=== PATIENT | female | born 2000 | race Caucasian/White ===

== ENCOUNTER 2019-12-16 00:13 | Emergency (ER) | payer OTHER ==
--- NOTE | 2019-12-16 00:33 | ER Document Report ---
ED Medical Screen (RME) - General Chief Complaint: Possible Overdose Stated Complaint: INTENTIONAL OVERDOSE Time Seen by Provider: 12/16/19 00:24 Mode of Arrival: Wheelchair Information source: Patient Notes: HPI;18-year-old female presents to the emergency room with her roommate stating that she attempted to commit suicide by taking 9 pills of 50 mg strength Zoloft, 3 Phenergan pills 25 mg each, and 15 Topamax 25 mg of pills were taken around 11:40 PM. Patient states she is been depressed and in a very low place for the past 3 days and felt that "if I just it would be easier" previous history of suicidal ideation but has never made an attempt in the past. PE: Alert and oriented x3. Flat affect. Answers questions appropriately. Groggy. Spoke with poison control recommends IV fluids, salt refiner, monitor for anticholinergic effects as well as prolonged QT. 6-hour observation. I have greeted and performed a rapid initial assessment of this patient. A comprehensive ED assessment and evaluation of the patient, analysis of test results and completion of the medical decision making process will be conducted by additional ED providers. I have specifically instructed the patient or family members with the patient to immediately return to any nursing staff should anything change in the patient's condition or with their chief complaint. TRAVEL OUTSIDE OF THE [place] IN LAST 30 DAYS: No Physical Exam - Vital signs Vitals: Temp Pulse BP Pulse Ox 98.4 F 126 H 100/83 99 12/16/19 00:22 12/16/19 00:12/16/19 00:12/16/19 00:22 Course - Vital Signs Vital signs: Temp Pulse Resp BP Pulse Ox 98.4 F 126 H 100/83 99 12/16/19 00:22 12/16/19 00:22 12/16/19 00:22 12/16/19 00:22
[2019-12-16] MEDS ORDERED: RINGERS SOLUTION,LACTATED 1,000 ML IV ONE (00:38)
[2019-12-16] MEDS ORDERED: DIAZEPAM INJ 10 MG/2 ML DISP.SYRIN IV ONE (01:03)
[2019-12-16] MEDS ORDERED: DIAZEPAM INJ 10 MG/2 ML DISP.SYRIN IM ONE (01:04)
[2019-12-16 01:55] LABS: ABSOLUTE BASOPHILS # (AUTO) 0.1 10^3/uL (0.0-0.2); ABSOLUTE EOSINOPHILS # (AUTO) 0.1 10^3/uL (0.0-0.6); ABSOLUTE LYMPHOCYTES (AUTO) 5.9 10^3/uL (0.5-4.7); ABSOLUTE MONOCYTES (AUTO) 0.6 10^3/uL (0.1-1.4); ABSOLUTE NEUT (AUTO) 5.4 10^3/uL (1.7-8.2); BASOPHILS % (AUTO) 0.5 % (0-2); EOSINOPHILS % (AUTO) 0.7 % (0-6); HEMATOCRIT 45.6 % (36.0-47.0); HEMOGLOBIN 15.1 g/dL (12.0-15.5); LYMPHOCYTES % (AUTO) 48.8 % (13-45); MEAN CORPUSCULAR HEMOGLOBIN 29.5 pg (27.0-33.4); MEAN CORPUSCULAR HGB CONC 33.2 g/dL (32.0-36.0); MEAN CORPUSCULAR VOLUME 89 fl (80-97); PLATELET COUNT 212 10^3/uL (150-450); RED BLOOD COUNT 5.13 10^6/uL (3.72-5.28); RED CELL DISTRIBUTION WIDTH 13.9 % (11.5-14.0); TOTAL CELLS COUNTED % (AUTO) 100 %
--- NOTE | 2019-12-16 02:05 | ER Document Report ---
Entered by NOAH BECKWITH SCRIBE 12/16/19 0110 Acting as scribe for:RANCHO COE IV, MD ED Psych Disorder / Suicide - General Chief Complaint: Possible Overdose Stated Complaint: INTENTIONAL OVERDOSE Time Seen by Provider: 12/16/19 00:24 Mode of Arrival: Wheelchair Information source: Patient, Friend, Emergency Med Personnel Notes: This 18 year old female patient brought in by roommate via POV presents to the ED today with complaints of suicidal ideation and intentional overdose of x9 50 mg tablets of Zoloft, x3 25 mg tablets of Phenergan, and x15 25 mg tablets of Topamax. Roommate at bedside states that she received a text from the patient at 2341 stating that she took an overdose of pills about x5 minutes prior. Patient told ED nurse that she has been depressed for the last x3 days and has a history of SI, but this was her first attempt. APC in triage discussed the case with Poison Control who recommends: IV fluids, forestry fire aid, monitor for anticholinergic effects as well as prolonged QT and 6-hour observation. TRAVEL OUTSIDE OF THE [place] IN LAST 30 DAYS: No - Related Data Allergies/Adverse Reactions: clindamycin Allergy (Verified 12/16/19 03:12) Home Medications: zoloft, topamax, phenergan Past Medical History - General Information source: Patient - Social History Smoking Status: Never Smoker Cigarette use (# per day): No Chew tobacco use (# tins/day): No Smoking Education Provided: No Frequency of alcohol use: Occasional Family History: Reviewed & Not Pertinent Patient has suicidal ideation: Yes Patient has homicidal ideation: No Review of Systems - Review of Systems Constitutional: No symptoms reported EENT: No symptoms reported Cardiovascular: No symptoms reported Respiratory: No symptoms reported Gastrointestinal: No symptoms reported Genitourinary: No symptoms reported Female Genitourinary: No symptoms reported Musculoskeletal: No symptoms reported Skin: No symptoms reported Hematologic/Lymphatic: No symptoms reported Neurological/Psychological: See HPI, Depression, Suicidal ideation -: Yes All other systems reviewed and negative Physical Exam - Vital signs Vitals: Temp Pulse BP Pulse Ox 98.4 F 126 H 100/83 99 12/16/19 00:22 12/16/19 00:22 12/16/19 00:22 12/16/19 00:22 - General General appearance: Other - Agitated - HEENT Head: Normocephalic, Atraumatic Eyes: Normal Neck: Normal - Respiratory Respiratory status: No respiratory distress Chest status: Nontender Breath sounds: Normal Chest palpation: Normal - Cardiovascular Rhythm: Regular, Tachycardia Murmur: No Friction rub: No Gallop: None auscultated - Abdominal Inspection: Normal Distension: No distension Bowel sounds: Normal Tenderness: Nontender - Abdomen soft Organomegaly: No organomegaly - Back Back: Normal, Nontender - Extremities General upper extremity: Normal inspection General lower extremity: Normal inspection - Neurological Neuro grossly intact: Yes - Psychological Associated symptoms: Agitated - Patient was initially agitated and required both chemical and physical restraints so she wouldn't harm herself or staff - Skin Skin Temperature: Warm Skin Moisture: Dry Skin Color: Normal Course - Vital Signs Vital signs: Temp Pulse Resp BP Pulse Ox 98.4 F 126 H 19 121/74 99 12/16/19 00:22 12/16/19 00:22 12/16/19 05:00 12/16/19 03:15 12/16/19 05:00 - Laboratory Result Diagrams: 12/16/19 01:18 12/16/19 01:18 Laboratory results interpreted by me: 12/16/19 12/16/19 01:18 01:18 WBC 12.0 H Lymph % (Auto) 48.8 H Absolute Lymphs (auto) 5.9 H Chloride 108 H Carbon Dioxide 18 L Glucose 111 H Magnesium 2.4 H Salicylates < 1.0 L Acetaminophen < 10 L - EKG Interpretation by Me Additional EKG results interpreted by me: 12/16/19 05:40 EKG obtained on 12/16/2019 at 0536 hrs. was interpreted by this MD. Findings: Si nus tachycardia, rate 112, normal axis, P waves preceding QRS complexes, QRS complexes appear narrow, there are no obvious patterns of ST segment elevation or depression present to suggest acute myocardial ischemia or infarction. Impression sinus tachycardia with non-specific ST segments. Discharge - Discharge Clinical Impression: Intentional overdose of drug in tablet form, Involuntary commitment Condition: Stable Disposition: OTHER I personally performed the services described in the documentation, reviewed and edited the documentation which was dictated to the scribe in my presence, and it accurately records my words and actions.
[2019-12-16 02:06] LABS: ALKALINE PHOSPHATASE 51 U/L (38-126); ANION GAP 17 (5-19); ASPARTATE AMINO TRANSFERASE 23 U/L (14-36); BILIRUBIN,TOTAL 0.6 mg/dL (0.2-1.3); BLOOD UREA NITROGEN 18 mg/dL (7-20); CALCIUM 9.4 mg/dL (8.4-10.2); CARBON DIOXIDE 18 mmol/L (22-30); CHLORIDE 108 mmol/L (98-107); GLUCOSE 111 mg/dL (75-110); POTASSIUM 4.2 mmol/L (3.6-5.0); TOTAL PROTEIN 7.5 g/dL (6.3-8.2)
[2019-12-16 02:10] LABS: ACETAMINOPHEN < 10 ug/mL (10-30); ALCOHOL < 10 mg/dL (NONE DETECTED); SALICYLATE < 1.0 mg/dL (2.0-20.0)
[2019-12-16 09:16] LABS: AMORPHOUS SEDIMENT,URINE TRACE /HPF; APPEARANCE,URINE CLOUDY; BILIRUBIN,URINE NEGATIVE (NEGATIVE); COLOR,URINE YELLOW; GLUCOSE, URINE >=500 mg/dL (NEGATIVE); KETONES,URINE NEGATIVE (NEGATIVE); LEUKOCYTE ESTERASE,URINE TRACE (NEGATIVE); NITRITE,URINE NEGATIVE (NEGATIVE); PROTEIN,URINE NEGATIVE (NEGATIVE); URINE SPECIFIC GRAVITY 1.014; UROBILINOGEN,URINE NEGATIVE mg/dL (<2.0)
[2019-12-16 09:28] LABS: URINE AMPHETAMINES SCREEN NEGATIVE; URINE BARBITURATES SCREEN NEGATIVE; URINE BENZODIAZEPINES SCREEN NEGATIVE; URINE COCAINE SCREEN NEGATIVE; URINE MARIJUANA (THC) SCREEN NEGATIVE; URINE METHADONE SCREEN NEGATIVE; URINE PHENCYCLIDINE SCREEN NEGATIVE
[2019-12-16] MEDS ORDERED: NORMAL SALINE 1000 ML 1,000 ML IV ONE (10:07)
[2019-12-16] MEDS ORDERED: ACETAMINOPHEN 325 MG TABLET PO ONE (13:48)
[2019-12-16 17:04] VITALS: BP 111/73
--- NOTE | 2019-12-17 10:04 | PSYCHOLOGICAL NOTE ---
Psych Note - Psych Note Date seen by psych provider: 12/16/19 Time seen by psych provider: 11:15 - At 1115 observation fo PCT helping patient get out of bed and to restroom. 1125 getting back into room from restroom. 1126 was sleeping. Obtained collateral from parents [phone]. 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 She was subsequently put on a 24 Hour Petition for Evaluation. Patient required one medical staff to assist her to the restroom. She immediately went back to sleep after getting back to her bed. She would not wake up and this clinician allowed her to sleep. Spoke to parents father Lalo [phone], mother Rosa [phone]) at bedside. They stated patients friend Agnieszka mother called the last night. The week before last patients got a DWI and speeding violations and patient kept going to the bathroom with her pills saying she was going to take them. They noted a history of depression that started when patient went to college (at [employer] she saw a therapist, ant [facility] she couldnt find a therapist and got medication Zoloft 25MH which she had been on for about 2 years but it was recently increased to 50MG). They denied previous MH hospitalizations. They stated patient gets good grades and is an only child. The acknowledged patient has a nervous tick and picks her fingers, they showed her left thumb which was scabbed and red, said she had that under control until getting . They noted patient got in July 2019 to a [employer] she knew for 3 months, they found out in August 2019, and things have gone down hill for patient since. Mother noted patient found out she had STIs from patient and now the DWI so patient has talked about leaving . Mother stated they are close and patient has cried to her. Parents noted they reside in [facility] and want to take her back with them. Parents noted stress related to marriage and husbands recent DWI affecting income, the house thats in patients name and her car Monday. Mother noted a history of anxiety and taking Zoloft. Patient was awake later in the day ([id number]). She denied current suicidal ideation. She stated she was glad she was alive. She agreed to go back to [place] with her parents. Parents agreed to be in control of all medications and administration. Patient was alert and oriented to self, person, place, and situation. Mood was euthymic with congruent affect. She was initially groggy and as it got closer to dinner time this improved. She denied current suicidal and homicidal ideation. Patient did not appear to be responding to internal stimuli as evidenced by fair eye contact and answering questions appropriately when addressed (this was closer to dinner time, earlier she was still groggy and confused). Thought processes were linear. Conversational speech was within normal limits for rate, tone and prosody. Intellectual abilities are estimated to be average. Insight, judgment and impulse control were fair as evidenced by being part of plan of care for discharge and being in agreement with the plan put forth. Clinical Impression: Intentional Overdose Marital Discord Impression/Plan: Patient is cleared from acute psychiatric services. Recommendation to [facility] 24 Hour Petition for Evaluation. She denied current carrillo icidal ideation and is glad to be alive. She has agreed to go home with her parents in [place]. Her reportedly got out of the [employer] and sent home to [place] with step mother. Friend still resides in the home and parents will assist with whatever they have to do related to it. Patient has a history of depression which seems to have worsened related to marital issues and financial issues as a result. Provided patient and parents with the local MH resource sheet as well as about 12 agencies in [facility]. Consulted with Dr. Fournier regarding the management and care of patient. ED Physician in agreement with recommendations.
== END 2019-12-16 18:00 | disposition home or self-care (01) ==
LOC: ER 00:13
DX: T43.222A Poisoning by selective serotonin reuptake inhibitors, intentional self-harm, initial encounter (principal); T42.6X2A Poisoning by other antiepileptic and sedative-hypnotic drugs, intentional self-harm, initial encounter; R00.0 Tachycardia, unspecified; F32.9 Major depressive disorder, single episode, unspecified; Y92.9 Unspecified place or not applicable; Z88.1 Allergy status to other antibiotic agents; Z79.899 Other long term (current) drug therapy; Z78.1 Physical restraint status
CPT/HCPCS: 99285; 96372; 36415; 80307 ×4; 83735; 84703; 85025; 80053; 81001; J3360; J7030; J7120